=== PATIENT | female | born 1970 | race Caucasian/White ===

== ENCOUNTER 2016-10-17 06:46 | Day surgery (SDC) | payer OTHER ==
[2016-10-11 09:42] VITALS: BMI 27.8
[2016-10-17] MEDS ORDERED: LIDOCAINE HCL 2% (20ML MULTI-DOSE VIAL) NR ONE (07:16)
[2016-10-17] MEDS ORDERED: MIDAZOLAM HCL 2 MG/2 ML SINGLE DOSE VIAL ONE (07:44)
[2016-10-17] MEDS ORDERED: PROPOFOL 20 ML ONE (07:44)
[2016-10-17 08:46] VITALS: TEMP 98
[2016-10-17] MEDS ORDERED: ACETAMINOPHEN 325 MG TABLET (FP) PO PRN (09:01)
[2016-10-17] MEDS ORDERED: ONDANSETRON 4 MG/2 ML VIAL IVPUSH PRN (09:01)
[2016-10-17] MEDS ORDERED: LACTATED RINGERS SOLUTION 1,000 ML IV SCH (09:15)
[2016-10-17 09:17] VITALS: BP 108/69; PULSE 68
--- NOTE | 2016-10-19 09:58 | OP ---
DATE OF OPERATION: 10/17/2016 PREOPERATIVE DIAGNOSIS: Right long trigger-finger. POSTOPERATIVE DIAGNOSIS: Right long trigger-finger. OPERATIVE PROCEDURE: Right long trigger-finger release. SURGEON: Armando Roa MD ANESTHESIA: Local with sedation. COMPLICATIONS: None. ESTIMATED BLOOD LOSS: Minimal. INDICATIONS FOR PROCEDURE: The patient is a 46-year-old female with the above findings, indicated for operative treatment. The risks, benefits, and alternatives were discussed with the patient at length. Proper informed consent was obtained. DESCRIPTION OF PROCEDURE: After proper identification of the patient and the correct operative site, the patient was brought to the operating room and placed supine on the operating room table. All bony prominences were well padded. Sedation was given by the anesthesiologist; local anesthesia was given with 2% lidocaine. Right upper extremity was prepped and draped in the usual sterile fashion. A well-padded tourniquet was placed with a sterile prep. Esmarch bandage was used to exsanguinate the right upper extremity. A tourniquet was inflated to 250 mmHg. Longitudinal incision was made over the A1 emily to the long finger. Incision was taken sharply through the skin with blunt and sharp dissection through subcutaneous tissues. A1 emily was identified and divided longitudinally. Patient was then asked to flex and extend her finger, and no further triggering was noted. Wound was irrigated with saline and repaired with a 5-0 nylon suture. Sterile dressings were applied. Patient was reversed from anesthesia and brought to the recovery room in stable condition. She tolerated the procedure well. Karla BARRAGAN/[id number]
== END 2016-10-17 09:25 | disposition home or self-care (01) ==
LOC: FASU 06:46
PROVIDERS: ATTEND Orthopaedic Surgery Hand Surgery
PROC: 0LN70ZZ Release Right Hand Tendon, Open Approach (ICD-10-PCS; principal; 2016-10-17 08:19)
DX: M65.331 Trigger finger, right middle finger (principal)

== ENCOUNTER 2021-11-08 06:19 | Day surgery (SDC) | payer OTHER ==
[2021-10-31 14:22] VITALS: BMI 29.8
[2021-11-08 06:47] VITALS: TEMP 97.8
[2021-11-08] MEDS ORDERED: LIDOCAINE HCL 2% (20ML MULTI-DOSE VIAL) ONE (07:24)
[2021-11-08] MEDS ORDERED: BUPIVACAINE HCL 100 ML ONE (07:24)
[2021-11-08] MEDS ORDERED: MIDAZOLAM HCL 2 MG/2 ML SINGLE DOSE VIAL ONE (07:33)
[2021-11-08] MEDS ORDERED: PROPOFOL 60 ML ONE (07:33)
[2021-11-08] MEDS ORDERED: DEXAMETHASONE SOD PHOSPHATE 4 MG/1 ML VIAL ONE (07:46)
[2021-11-08] MEDS ORDERED: ONDANSETRON 4 MG/2 ML VIAL ONE (07:46)
[2021-11-08] MEDS ORDERED: KETOROLAC TROMETHAMINE 30 MG/1 ML VIAL ONE (07:46)
[2021-11-08 09:28] VITALS: BP 120/74; PULSE 71; RESP 16
[2021-11-08] MEDS ORDERED: oxyCODONE HCL 5 MG TABLET PO PRN ×2 (11:39)
[2021-11-08] MEDS ORDERED: ONDANSETRON 4 MG/2 ML VIAL IVPUSH PRN (11:39)
== END 2021-11-08 09:10 | disposition home or self-care (01) ==
LOC: FASU 06:19
PROVIDERS: ATTEND Orthopaedic Surgery Hand Surgery
PROC: 0LN70ZZ Release Right Hand Tendon, Open Approach (ICD-10-PCS; principal; 2021-11-08 07:56)
DX: M65.311 Trigger thumb, right thumb (principal)